=== PATIENT | female | born 1965 | race Caucasian/White ===

== ENCOUNTER 2019-07-26 10:44 | Inpatient (IN) | payer OTHER ==
--- NOTE | 2019-07-26 10:50 | PDOC ---
History of Present Illness - General Chief Complaint: Wound Stated Complaint: LEG ULCER Time Seen by Provider: 07/26/19 10:48 History Source: Patient Exam Limitations: No Limitations - History of Present Illness Initial Comments: 07/26/19 10:50 54yF w PMHx lupus, Raynaud's disease, DVT, vasculitis presenting w LLE pain, edema, ulcer. 3d ago, progressive worsening pain (worse w rest, relieved w movement), erythema, edema, warm, rapidly growing black/red ulcer over mid- medial LLE with minimal yellow clear discharge. Denies leg trauma. Took ibuprofen without much relief, last time 8a. Still able to ambulate. Not on anticoagulation or immunosupression. Was seen in 12/2012 for RLE ulcer, DVT, infection managed by vascular surgeon Dr. Arcos. Dr. Arcos was out of the country this week. Denies fever, nausea/vomiting, chest pain/SOB, urinary/ bowel mvmt changes. Past History - Past Medical History Allergies/Adverse Reactions: Allergies Allergy/AdvReac Type Severity Reaction Status Date / Time No Known Drug Allergies Allergy Verified 07/26/19 10:51 Home Medications: Ambulatory Orders Ibuprofen 600 mg PO TID PRN 07/26/19 Anemia: Yes Asthma: No Cancer: No Cardiac Disorders: No CVA: No COPD: No CHF: No Dementia: No Diabetes: No GI Disorders: No Disorders: No HTN: No Hypercholesterolemia: No Liver Disease: No Seizures: No Thyroid Disease: No - Surgical History Abdominal Surgery: No Appendectomy: Yes Cardiac Surgery: No Cholecystectomy: No Lung Surgery: No Neurologic Surgery: No Orthopedic Surgery: No - Psycho Social/Smoking Cessation Hx Smoking Status: No Smoking History: Current every day smoker Have you smoked in the past 12 months: Yes Number of Cigarettes Smoked Daily: 5 'Breaking Loose' booklet given: 02/21/13 Hx Alcohol Use: Yes (1-2 GLASSES WINE/DAY) Drug/Substance Use Hx: Yes Substance Use Type: Alcohol Hx Substance Use Treatment: No Review of Systems - Review of Systems Constitutional: No: Chills, Fever HEENTM: No: Eye Pain, Ear Discharge, Nose Bleeding, Throat Pain Respiratory: No: Cough, Shortness of Breath Cardiac (ROS): No: Chest Pain, Lightheadedness ABD/GI: No: Abdominal Distended, Constipated, Diarrhea, Nausea, Vomiting : No: Burning, Dysuria, Flank Pain Musculoskeletal: No: Back Pain, Gout Integumentary: Yes: Erythema (RLE). No: Bruising Neurological: No: Headache, Seizure, Tingling Psychiatric: No: Anxiety, Depression, Stressors Endocrine: No: Excessive Sweating, Flushing, Intolerance to Cold, Intolerance to Heat Hematologic/Lymphatic: Yes: Blood Clots. No: Anemia *Physical Exam - Physical Exam General Appearance: Yes: Nourished, Appropriately Dressed, Mild Distress HEENT: positive: EOMI, MAGGIE, Normal Voice, Hearing Grossly Normal. negative: Scleral Icterus (R), Scleral Icterus (L), Nasal Congestion, Rhinorrhea Respiratory/Chest: positive: Lungs Clear, Normal Breath Sounds. negative: Chest Tender, Respiratory Distress, Crackles, Rales, Rhonchi, Stridor, Wheezing Cardiovascular: positive: Regular Rhythm, Regular Rate, S1, S2. negative: Edema , Murmur Vascular Pulses: Dorsalis-Pedis (R): 2+, Doralis-Pedis (L): 2+ Integumentary: positive: Swelling (3+ edema to knee RLLE), Other (8cm irregular black/red superficial ulcer over medial-mid L tib-fib. 5cm ulcer below with clear yellow discharge. Surrounding warmth, erythema extending up posterior mid thigh down to foot. RLE healed punched out ulcers/scarring) Neurologic: positive: recruiting intern II-XII NML intact, Fully Oriented, Alert, Normal Response, Motor Strength 5/5. negative: Numbness, Sensory Deficit, Confused, Disoriented ED Treatment Course - LABORATORY CBC & Chemistry Diagram: 07/26/19 13:20 07/26/19 13:20 Medical Decision Making - Medical Decision Making 07/26/19 11:31 CBC CMP trop lactate blood/wound cx coags T&S EKG shows NSR, L axis deviation, HR 70 QTc 473, no ST changes CXR clear lung martinez Anselmo leg US PE : RLE 8cm irregular black/red superficial ulcer over medial-mid L tib-fib. Separate 5cm posterior ulcer with clear yellow discharge. Surrounding warmth, edema, erythema extending up posterior mid thigh AST 230, ALT 170, total bili 1.4 --- 54yF w PMHx lupus, Raynaud's disease, DVT, vasculitis presenting w LLE pain, edema, ulcer d/t Cellulitis 2/2 vascular insufficiency. LLE XR did not show fracture/subluxation/ostemyelitis/nercotizing fasciitis, US did not show DVT Elevated LFTs, total bili 1.4, neg weaver sign, denies AB pain. Neurovascular intact. Given tylenol, 2 morphine, vanc/sozyn for . CBC, CMP non concerning. Elevated LFTs, total bili 1.4, neg weaver sign, denies AB pain. No need for emergent vascular consult Admitted m/s Dr Dobson for LLE cellulitis and necrosis requiring IV antibiotics Discharge - Discharge Information Problems reviewed: Yes Clinical Impression/Diagnosis: Cellulitis Qualifiers: Site of cellulitis: extremity Site of cellulitis of extremity: lower extremity Laterality: left Qualified Code(s): L03.116 - Cellulitis of left lower limb Condition: Good - Follow up/Referral Referrals: Alfredo Munguia MD [Primary Care Provider] - - Patient Discharge Instructions - Post Discharge Activity
[2019-07-26 10:58] VITALS: BMI 26.4
[2019-07-26] MEDS ORDERED: ACETAMINOPHEN 1000 MG/100 ML VIAL (NON FORMULARY) IVPB ONE (11:19)
[2019-07-26] MEDS ORDERED: ACETAMINOPHEN INJECTION 100 ML IVPB ONE (11:25)
--- NOTE | 2019-07-26 11:33 | PDOC ---
Attending Attestation - Resident Resident Name: Hossein Ramirez - ED Attending Attestation I have performed the following: I have examined & evaluated the patient, The case was reviewed & discussed with the resident, I agree w/resident's findings & plan, Exceptions are as noted - HPI HPI: 07/26/19 11:30 54-year-old female history of ray nods, lupus, prior DVT and previous varicose veins and leg ulcers. Here today complaining of the left leg swelling redness and ulcer. Patient states her symptoms started approximately 4 days ago she noticed a small blister which subsequently grew and developed a ulcerated wound today she noted it was darkened in color and had some leg swelling and pain. States her pain is worse with sitting still but improved with getting up and ambulating is not currently on any anticoagulation does not take a baby aspirin. Also states she is not on any rheumatoid or immune modulators. She follows with Dr. Dain Hendrickson vascular surgeon who is out of town on vacation denies any fevers chills no shortness of breath no chest pain no history of renal or cardiac involvement secondary to her lupus - Physicial Exam PE: 07/26/19 11:31 Awake alert no acute distress lungs are clear bilaterally heart is regular with any murmurs rubs or gallops abdomen is soft nontender extremities are cool but well perfused patient does have 2+ DP PT pulses bilaterally. There is bilateral pitting edema noted the left leg is noted for a large 5 x 2 inch necrotic and reddened wound there is surrounding erythema no noted exudates or drainage. No purulence. Skin is otherwise noted for old wound scars but otherwise warm and dry and intact with no rash patient is awake alert and oriented x3 - Medical Decision Making 07/26/19 11:32 54-year-old female history of lupus ray nods prior DVT not on any anticoagulation here today with a left leg swelling wound and pain. Concerns for necrosis does have good pulses. At this time differential includes DVT vasculitic wound infection renal failure and cardiac involvement is also considered due to her history of lupus. Plan CBC CMP BNP troponin EKG chest x- ray and Dopplers of the left lower extremity. Due to the concern patient has vascular involvement and has had difficulty healing her wounds she will be admitted for IV antibiotics with a consult vascular surgery 07/26/19 13:49 pt dopplers negative. will treat with vanco and zosy. pt high risk leg ulcer due to h;o lupus, raynauds, chronic wounds and venous insufficency . large necrotic wound. will given iv abx, doppler negative for dvt. pt with good pulses. xray negative for osteo, cxr negative for CHF . 07/26/19 15:21 attempt to call pt vascular surgeon, [place], unavailable on vacation until 08/05. called pt pcp dr Munguia, pt may require transfer as she has required intervention by vascular surgeon in the past and skin graft to prior wounds on opposite leg. no vascular surgeons availble for consult here at [facility] or [facility]. d/w admitting [facility] OPERATOR Tejinder, will accept pt . will obtain ct leg with contrast r/o underlyung abscess or surgical issue. Heart Score/ECG Review #1 General ECG Interpretation: Sinus Rhythm, Normal Rate, Normal Intervals, No acute ischemic changes (TWI III, AVF,)
[2019-07-26 13:43] LABS: BASO % 0.2 % (0-2.0); EOS % 0.4 % (0-4.5); HEMOGLOBIN 12.4 GM/dl (10.7-15.3); LYMPH % 16.9 % (8-40); MCH 33.7 pg (25.7-33.7); MCHC 33.5 g/dl (32.0-36.0); MEAN CELL VOLUME 100.5 fl (80-96); MEAN PLT VOLUME 7.6 fl (7.5-11.1); MONO % 7.9 % (3.8-10.2); NEUT % 74.6 % (42.8-82.8); PLATELET COUNT 174 K/MM3 (134-434); RBC 3.69 M/mm3 (3.60-5.2); RDW 12.1 % (11.6-15.6); WHITE BLOOD COUNT 5.5 K/mm3 (4.0-10.8)
[2019-07-26 13:49] LABS: ALBUMIN 3.1 g/dl (3.4-5.0); BILIRUBIN,TOTAL 1.4 mg/dl (0.2-1); CALCIUM 8.7 mg/dl (8.5-10); CREATININE 0.5 mg/dl (0.55-1.3); POTASSIUM 3.6 mmol/L (3.5-5.1); TOT PROT 8.3 g/dl (6.4-8.2)
[2019-07-26] MEDS ORDERED: VANCOMYCIN 1 GM in D5W (PRE-DOCKED) 1,000 MG/250 ML IVPB ONE (13:50)
[2019-07-26] MEDS ORDERED: PIPERACILLIN/TAZOB 3.375 GM 3.375 GM in DEXTROSE 5%-WATER - 50 ML IVPB ONE (13:51)
[2019-07-26 13:57] LABS: INR 1.23 (0.82-1.09); PROTHROMBIN TIME (PATIENT) 13.7 SEC (10.2-13.0)
[2019-07-26] MEDS ORDERED: morphine CARPU-JECT 4 MG/1 ML DISP.SYRIN IVPUSH ONE (14:04)
[2019-07-26] MEDS ORDERED: morphine SULFATE 4 MG/ML VIAL ONE ×2 (14:05→17:06)
[2019-07-26] MEDS ORDERED: VANCOMYCIN 1,000 MG VIAL (RESTRICTED TO ID ONLY) ONE (14:06)
[2019-07-26] MEDS ORDERED: PIPERACILLIN/TAZOBACTAM 3.375 GM VIAL IVPB ONE ×2 (14:06→21:33)
[2019-07-26] MEDS ORDERED: morphine CARPU-JECT 2 MG/1 ML DISP.SYRIN IVPUSH ONE (17:04)
--- NOTE | 2019-07-26 19:42 | HP ---
Admitting History and Physical - Primary Care Physician PCP: Dr. Jansen - Admission Chief Complaint: left leg wound/pain History of Present Illness: 54 year old female with PMHx of lupus, Raynaud's disease, DVT, vasculitis arrived to ED with complain of LLE pain, edema, ulcer which started 3d ago and has been progressively worsening pain occus with rest, relieved with movement, erythema, edema, warm, rapidly growing black/red ulcer over mid-medial LLE with minimal yellow clear discharge. Denies leg trauma. Patient took ibuprofen without much relief (last dose 8am), still able to ambulate. Not on anticoagulation or immunosupression. Patient denies fever, nausea/vomiting, chest pain/SOB, urinary/bowel mvmt changes. History Source: Patient Limitations to Obtaining History: No Limitations - Past Medical History Cardiovascular: Yes: Deep Vein Thrombosis ...LMP: 07/31/08 Heme/Onc: Yes: Anemia Rheumatology: Yes: Lupus, Vasculitis, Other (Raynaud's disease) - Past Surgical History Past Surgical History: Yes: Appendectomy - Smoking History Smoking history: Current every day smoker Have you smoked in the past 12 months: Yes Aproximately how many cigarettes per day: 5 - Alcohol/Substance Use Hx Alcohol Use: Yes (1-2 GLASSES WINE/DAY) History of Substance Use: reports: None - Social History ADL: Independent History of Recent Travel: No Home Medications - Allergies Allergies/Adverse Reactions: Allergies Allergy/AdvReac Type Severity Reaction Status Date / Time No Known Drug Allergies Allergy Verified 07/26/19 10:51 - Home Medications Home Medications: Ambulatory Orders Ibuprofen 600 mg PO TID PRN 07/26/19 Family Medical History Family History: Denies Review of Systems - Review of Systems Constitutional: reports: No Symptoms Eyes: reports: No Symptoms HENT: reports: No Symptoms Neck: reports: No Symptoms Cardiovascular: reports: No Symptoms Respiratory: reports: No Symptoms Gastrointestinal: reports: No Symptoms Genitourinary: reports: No Symptoms Breasts: reports: No Symptoms Reported Musculoskeletal: reports: No Symptoms, Extremity Pain Integumentary: reports: Erythema, Wound, Other (LLE pain, edema, ulcer) Neurological: reports: No Symptoms Endocrine: reports: No Symptoms Hematology/Lymphatic: reports: No Symptoms Psychiatric: reports: No Symptoms Physical Examination Vital Signs: Vital Signs Temperature 98.2 F 07/26/19 18:16 Pulse Rate 82 07/26/19 18:16 Respiratory Rate 16 07/26/19 18:16 Blood Pressure 140/81 07/26/19 18:16 O2 Sat by Pulse Oximetry (%) 96 07/26/19 10:45 Constitutional: Yes: No Distress, Calm Eyes: Yes: Conjunctiva Clear, EOM Intact HENT: Yes: Atraumatic, Normocephalic Neck: Yes: Supple, Trachea Midline Cardiovascular: Yes: Regular Rate and Rhythm Respiratory: Yes: Regular, CTA Bilaterally Gastrointestinal: Yes: Normal Bowel Sounds, Soft Musculoskeletal: Yes: WNL Extremities: Yes: Erythema, Other (Swelling,(8cm irregular black/red superficial ulcer over medial-mid L tib-fib. 5cm ulcer below with clear yellow discharge. Surrounding warmth, erythema extending up posterior mid thigh down to foot. RLE healed punched out ulcers/scarring)) Edema: Yes Edema: LLE: 4+, RLE: 4+ Peripheral Pulses WNL: Yes Integumentary: Yes: Erythema, Venous Stasis Changes Neurological: Yes: Alert, Oriented Labs: CBC, BMP 07/26/19 13:20 07/26/19 13:20 Imaging - Results Chest X-ray: Report Reviewed (No acute infiltrate) X-ray: Report Reviewed (tibia/fib left - no acute fx noted) Cat Scan: Report Reviewed (CT LE: No CT evidence of abscess or soft air tissues) Ultrasound: Report Reviewed (Vascular studies b/l LE: No DVT) EKG: Report Reviewed (EKG shows NSR, L axis deviation, no ST changes) Problem List - Problems (1) Necrotizing cellulitis Code(s): L03.90 - CELLULITIS, UNSPECIFIED (2) Lupus (systemic lupus erythematosus) Code(s): M32.9 - SYSTEMIC LUPUS ERYTHEMATOSUS, UNSPECIFIED (3) Raynaud disease Code(s): I73.00 - RAYNAUD'S SYNDROME WITHOUT GANGRENE (4) H/O deep venous thrombosis Code(s): Z86.718 - PERSONAL HISTORY OF OTHER VENOUS THROMBOSIS AND EMBOLISM (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 # LLE cellulitis necrotizing CBC reviewed unremarkable afebrile, lactic wnl EKG shows NSR, L axis deviation, no ST changes CXR clear lung martinez Anselmo leg US: negative no DVT CT LE: no evidence of abscess or soft air tissue/gas accumulation In ED given tylenol, 2mg morphine, vanc/sozyn - will continue with zosyn q 8 hours - follow up cbc, wound/blood cx - pain management - Elevated extremity - follow up ID - follow up vascular #Hypertransaminasemia - AST 230, ALT 170, total bili 1.4 (elevated from prior visit) -- abd ? - follow LFTs and bili trend - follow up ABD US - if any acute finding consider CT abd Diet: regular diet VTE:Lovenox SQ Dispo: Inpatient medicine Visit type - Emergency Visit Emergency Visit: Yes ED Registration Date: 07/26/19 Care time: The patient presented to the Emergency Department on the above date and was hospitalized for further evaluation of their emergent condition. - New Patient This patient is new to me today: Yes Date on this admission: 07/27/19 - Critical Care Critical Care patient: No
[2019-07-26] MEDS ORDERED: oxyCODONE HCL 5 MG TABLET PO PRN (20:03)
[2019-07-26] MEDS ORDERED: DEXTROSE 5%-WATER - 50 ML IVPB ONE (21:33)
[2019-07-26] MEDS: traMADol HCL 50 MG TABLET PO PRN (21:39)
[2019-07-26] MEDS: ACETAMINOPHEN 325 MG TABLET (FP) PO PRN (21:39)
[2019-07-26] MEDS: PIPERACILLIN/TAZOB 3.375 GM 3.375 GM in DEXTROSE 5%-WATER - 50 ML IVPB SCH (21:40)
[2019-07-26] MEDS ORDERED: PIPERACILLIN/TAZOB 3.375 GM 3.375 GM in DEXTROSE 5%-WATER - 50 ML IVPB SCH (22:00)
[2019-07-26] MEDS ORDERED: HYDROmorphone HCL CARPU-JECT 1 MG/1 ML DISP.SYRIN IVPUSH ONE (23:02)
[2019-07-27] MEDS: VANCOMYCIN 1 GM in D5W (PRE-DOCKED) 1,000 MG/250 ML IVPB SCH ×2 (01:33→14:05)
[2019-07-27] MEDS ORDERED: VANCOMYCIN 1 GM in D5W (PRE-DOCKED) 1,000 MG/250 ML IVPB SCH ×3 (02:00→16:00)
[2019-07-27] MEDS ORDERED: DEXTROSE 5%-WATER - 50 ML IVPB ONE ×3 (03:31→13:19)
[2019-07-27] MEDS ORDERED: PIPERACILLIN/TAZOBACTAM 3.375 GM VIAL IVPB ONE ×3 (03:31→13:18)
[2019-07-27] MEDS: PIPERACILLIN/TAZOB 3.375 GM 3.375 GM in DEXTROSE 5%-WATER - 50 ML IVPB SCH ×2 (03:36→10:00)
[2019-07-27] MEDS: ACETAMINOPHEN 325 MG TABLET (FP) PO PRN (03:45)
[2019-07-27] MEDS: traMADol HCL 50 MG TABLET PO PRN ×2 (03:45→16:15)
[2019-07-27] MEDS ORDERED: HYDROmorphone HCL CARPU-JECT 1 MG/1 ML DISP.SYRIN IM PRN (06:31)
[2019-07-27 09:00] LABS: ALBUMIN 2.7 g/dl (3.4-5.0); BASO % 0.2 % (0-2.0); BILIRUBIN,TOTAL 1.1 mg/dl (0.2-1); CALCIUM 8.1 mg/dl (8.5-10); CREATININE 0.5 mg/dl (0.55-1.3); EOS % 1.1 % (0-4.5); HEMATOCRIT 35.1 % (32.4-45.2); HEMOGLOBIN 11.6 GM/dl (10.7-15.3); LYMPH % 21.3 % (8-40); MEAN PLT VOLUME 7.6 fl (7.5-11.1); NEUT % 66.4 % (42.8-82.8); PLATELET COUNT 174 K/MM3 (134-434); POTASSIUM 4.2 mmol/L (3.5-5.1); RBC 3.51 M/mm3 (3.60-5.2); RDW 12.1 % (11.6-15.6); TOT PROT 7.3 g/dl (6.4-8.2); WHITE BLOOD COUNT 5.8 K/mm3 (4.0-10.8)
[2019-07-27] MEDS ORDERED: ENOXAPARIN NA (PORCINE) 40 MG/0.4 ML DISP.SYRIN SQ SCH (10:00)
--- NOTE | 2019-07-27 10:14 | PN ---
Physical Exam: SUBJECTIVE: Patient seen and examined, c/o LLE pain, no other complains. OBJECTIVE: Vital Signs Period Temp Pulse Resp BP Sys/Franklin Pulse Ox Last 24 Hr 98.2 F-99.7 F 73-89 16-18 108-152/55-82 94-96 GENERAL: The patient is awake, alert, and fully oriented, in no acute distress. HEAD: Normal with no signs of trauma. EYES: PERRL, extraocular movements intact, sclera anicteric, conjunctiva clear. No ptosis. ENT: Ears normal, nares patent, oropharynx clear without exudates, moist mucous membranes. NECK: Trachea midline, full range of motion, supple. LUNGS: Breath sounds equal, clear to auscultation bilaterally, no wheezes, no crackles, no accessory muscle use. HEART: Regular rate and rhythm, S1, S2 without murmur, rub or gallop. ABDOMEN: Soft, nontender, nondistended, normoactive bowel sounds, no guarding, no rebound, no hepatosplenomegaly, no masses. EXTREMITIES: 2+ pulses, warm, well-perfused, LLE with with redness/ tenderness irregular black/red superficial ulcer over medial-mid L tib-fib, + edema 2-3+, pulse present NEUROLOGICAL: Cranial nerves II through XII grossly intact. Normal speech, gait not observed. PSYCH: Normal mood, normal affect. SKIN: Warm, dry, normal turgor, no rashes or lesions noted Laboratory Results - last 24 hr 07/26/19 07/26/19 07/26/19 13:20 13:20 13:20 WBC 5.5 RBC 3.69 Hgb 12.4 Hct 37.0 MCV 100.5 H MCH 33.7 MCHC 33.5 RDW 12.1 D Plt Count 174 MPV 7.6 Absolute Neuts (auto) 4.2 Neutrophils % 74.6 Lymphocytes % 16.9 Monocytes % 7.9 Eosinophils % 0.4 Basophils % 0.2 PT with INR INR Sodium 133 L Potassium 3.6 Chloride 97 L Carbon Dioxide 26 Anion Gap 10 BUN 6.0 L Creatinine 0.5 L Est GFR (CKD-EPI)AfAm 125.40 Est GFR (CKD-EPI)NonAf 108.19 Random Glucose 109 H Lactic Acid Calcium 8.7 Total Bilirubin 1.4 H AST 236 H ALT 175 H Alkaline Phosphatase 57 Troponin I < 0.03 Total Protein 8.3 H Albumin 3.1 L Urine Color Urine Appearance Urine pH Urine Protein Urine Glucose (UA) Urine Ketones Urine Blood Urine Nitrite Urine Bilirubin Urine Urobilinogen Ur Leukocyte Esterase Blood Type Antibody Screen 07/26/19 07/26/19 07/26/19 13:20 13:20 13:20 WBC RBC Hgb Hct MCV MCH MCHC RDW Plt Count MPV Absolute Neuts (auto) Neutrophils % Lymphocytes % Monocytes % Eosinophils % Basophils % PT with INR 13.7 H INR 1.23 H Sodium Potassium Chloride Carbon Dioxide Anion Gap BUN Creatinine Est GFR (CKD-EPI)AfAm Est GFR (CKD-EPI)NonAf Random Glucose Lactic Acid 1.3 Calcium Total Bilirubin AST ALT Alkaline Phosphatase Troponin I Total Protein Albumin Urine Color Urine Appearance Urine pH Urine Protein Urine Glucose (UA) Urine Ketones Urine Blood Urine Nitrite Urine Bilirubin Urine Urobilinogen Ur Leukocyte Esterase Blood Type A POSITIVE Antibody Screen Negative 07/26/19 07/27/19 07/27/19 14:25 07:32 07:32 WBC 5.8 RBC 3.51 L Hgb 11.6 Hct 35.1 MCV 100.0 H MCH 33.0 MCHC 33.0 RDW 12.1 Plt Count 174 MPV 7.6 Absolute Neuts (auto) 3.9 Neutrophils % 66.4 Lymphocytes % 21.3 Monocytes % 11.0 H Eosinophils % 1.1 Basophils % 0.2 PT with INR INR Sodium 134 L Potassium 4.2 Chloride 99 Carbon Dioxide 28 Anion Gap 7 L BUN 4.0 L Creatinine 0.5 L Est GFR (CKD-EPI)AfAm 125.40 Est GFR (CKD-EPI)NonAf 108.19 Random Glucose 85 Lactic Acid Calcium 8.1 L Total Bilirubin 1.1 H AST 163 H ALT 133 H Alkaline Phosphatase 46 D Troponin I Total Protein 7.3 Albumin 2.7 L Urine Color Mary Urine Appearance Clear Urine pH 6.5 Urine Protein Trace Urine Glucose (UA) Negative Urine Ketones 1+ H Urine Blood Negative Urine Nitrite Negative Urine Bilirubin 1+ H Urine Urobilinogen 1.0 Ur Leukocyte Esterase Negative Blood Type Antibody Screen Active Medications Generic Name Dose Route Start Last Admin Trade Name Freq PRN Reason Stop Dose Admin Acetaminophen 650 mg 07/26/19 20:01 07/27/19 03:45 Tylenol - PO 650 mg Q6H PRN Administration PAIN LEVEL 1-5 Enoxaparin Sodium 40 mg 07/27/19 10:00 Lovenox - SQ DAILY REUBEN Hydromorphone HCl 0.5 mg 07/27/19 06:31 07/27/19 06:53 Dilaudid Injection - IM 0.5 mg Q6H PRN Administration PAIN LEVEL 7 - 10 Piperacillin Sod/Tazobactam 50 mls @ 100 mls/hr 07/26/19 22:00 07/27/19 03:36 Sod 3.375 gm/ Dextrose IVPB 07/27/19 10:29 100 mls/hr Q8H-IV REUBEN Administration Protocol Vancomycin HCl 1,000 mg 07/27/19 02:00 07/27/19 01:33 Vancomycin (Pre-Docked) IVPB 07/27/19 14:01 1,000 mg Q12H REUBEN Administration Protocol EKG shows NSR, L axis deviation, no ST changes CXR clear lung martinez Anselmo leg US: negative no DVT CT LE: no evidence of abscess or soft air tissue/gas accumulation ASSESSMENT/PLAN: 54 year old female with PMHx of lupus, Raynaud's disease, DVT, vasculitis arrived to ED with complain of LLE pain, edema, ulcer. PMD Dr. Munguia vascular Dr. Arcos # LLE cellulitis,?narcotizing - afebrile with no leukocytosis - DVT ruled out - s/p Vanco and Zosyn in ER -will cont on Vanco, Zosyn - pain control - will f/u on culture reports - ID consult, Dr. Jack will see pt today - check vanco trough before the 4th dose - Elevated extremity - spoke with vascular Dr. Nye( image sent ), states likely an escher, rec to cont on IV abx and wound care referral ( Pt wants to see Dr. Arcos)) # Trasaminitis - LFT's remains elevated - Will check abdominal US - Hep profile # Hx lupus, Raynaud's disease - stable - not on any meds Diet: Regular diet VTE:Lovenox SQ Visit type - Emergency Visit Emergency Visit: Yes ED Registration Date: 07/26/19 Care time: The patient presented to the Emergency Department on the above date and was hospitalized for further evaluation of their emergent condition. - New Patient This patient is new to me today: Yes Date on this admission: 07/27/19 - Critical Care Critical Care patient: No
[2019-07-27] MEDS ORDERED: traMADol HCL 50 MG TABLET PO PRN (11:25)
[2019-07-27] MEDS ORDERED: HYDROmorphone HCL CARPU-JECT 1 MG/1 ML DISP.SYRIN IVPUSH PRN (11:25)
--- NOTE | 2019-07-27 13:36 | EKG ---
Test Reason : Blood Pressure : / mmHG Vent. Rate : 070 BPM Atrial Rate : 070 BPM P-R Int : 134 ms QRS Dur : 080 ms QT Int : 438 ms P-R-T Axes : 010 -42 -08 degrees QTc Int : 473 ms NORMAL SINUS RHYTHM LEFT AXIS DEVIATION ABNORMAL ECG NO PREVIOUS ECGS AVAILABLE Confirmed by MD NADEEM, DURAN ([id number]) on 07/27/2019 1:36:29 PM Referred By: Confirmed By:DURAN SILVER MD
[2019-07-27] MEDS ORDERED: PIPERACILLIN/TAZOB 3.375 GM 3.375 GM in DEXTROSE 5%-WATER - 50 ML IVPB SCH (15:30)
[2019-07-27] MEDS ORDERED: CLINDAMYCIN 900 MG PREMIX IVPB 900 MG/50 ML BAG IVPB SCH (16:00)
[2019-07-27] MEDS ORDERED: PIPERACILLIN/TAZOB 4.5 GM 4.5 GM in DEXTROSE 5%-WATER 100 ML IVPB SCH (16:00)
--- NOTE | 2019-07-27 16:02 | PN ---
Progress Note (short form) - Note Progress Note: ID consult dictated imp/reccd 54 yo female admitted from home- pmh of lupus- no meds has had itch of her LLE for last 2 weeks, on lc noted pain and swelling, it markedly worsened with black eschar and she came to ED on Monday notes similar episode in 2012 requiring vascular surgery input ct scan no abscess or air now febrile to 101.7 notes severe pain in her leg and area of eschar-increased since admission, new onset of fever despite 24 hours of antibiotics no nausea or vomiting no chest pain or abdominal pain severe soft tissue infection of the LLE- would suggest transfer to a facility that has surgery available to evaluate her leg vanco/zosyn/clindamycin ivf abnl lfts- clinically no signs of cholycytitis but US is suggestive, secondary to sepsis? NPO IVF zosyn d/w patient and d/w Dr Brantley plans for transfer over 45 minutes spent in the care of this patient Problem List - Problems (1) Necrotizing soft tissue infection Code(s): M79.89 - OTHER SPECIFIED SOFT TISSUE DISORDERS (2) Abnormal LFTs Code(s): R94.5 - ABNORMAL RESULTS OF LIVER FUNCTION STUDIES (3) Lupus (systemic lupus erythematosus) Code(s): M32.9 - SYSTEMIC LUPUS ERYTHEMATOSUS, UNSPECIFIED (4) Raynaud disease Code(s): I73.00 - RAYNAUD'S SYNDROME WITHOUT GANGRENE
[2019-07-27] MEDS ORDERED: DEXTROSE 5%-NORMAL SALINE 1,000 ML IV SCH (16:15)
[2019-07-27] MEDS ORDERED: DEXTROSE 5%-WATER 100 ML IVPB ONE (16:19)
[2019-07-27] MEDS ORDERED: PIPERACILLIN/TAZOBACTAM 4.5 GM VIAL IVPB ONE (16:19)
--- NOTE | 2019-07-27 17:03 | CONS ---
DATE OF CONSULTATION: 07/27/2019 REFERRING PROVIDER: The hospitalist service. This is a 54-year-old woman. She has a history of lupus (she is not on any medications), Raynaud's disease, prior DVT. She is followed by Dr. Munguia as an outpatient, has a remote history in 2012 of an ulcer of her right lower extremity that required debridement by Dr. Dain Martin. She has had 2 weeks of itching of her left lower extremity. She may have scratched it. On Monday the leg started becoming very painful and red. On showed noted rapidly growing eschar on the leg with severe pain, and she presented to the ER. She denies any trauma. She tried some Motrin. She denies any chest pain, abdominal pain, nausea, vomiting , or diarrhea. She denies any fever. On arrival in the ER, she has blood cultures drawn. She had labs checked which showed elevated liver enzymes. She had x-rays that showed no fracture. She had a duplex that showed no DVT. She had a CAT scan of her leg done that showed no abscess or soft tissue air. She was started on vancomycin and Zosyn. I am asked to see her for further evaluation. This afternoon she had fever of 101.7. She notes the leg is increasing in pain . It has been marked. There is a large area of eschar on the lower leg. She has surrounding area of erythema extending up into her thigh, all of which is very tender to touch. PAST MEDICAL HISTORY: Notable for DVT, anemia, lupus, vasculitis, and Raynaud's disease. She is status post appendectomy in the past. SOCIAL HISTORY: She lives with her , her sons. They have a pet dog. She is currently a smoker, smokes 5 cigarettes a day. She drinks 1 or 2 glasses of wine, and there is no history of any recent travel. ALLERGIES: She has no known drug allergies. MEDICATIONS: She has been taking Tylenol for the leg pain. FAMILY HISTORY: Unremarkable. REVIEW OF SYSTEMS: As reported, she has no headache. She has no nausea, vomiting, diarrhea, dysuria. She complains of severe pain in her leg. PHYSICAL EXAMINATION: General: She is awake and alert. Vital Signs: Her temperature is 101.7, pulse of 81, blood pressure 122/62, respiratory rate 16. She is saturating 94% on room air. HEENT: She is normocephalic. Her eyes are anicteric. Neck: Supple. Lungs: Clear to auscultation. Heart: Regular rate and rhythm. Abdomen: Soft, nontender. Extremities: She has no inguinal adenopathy. Her left leg, she has a large area, roughly 6 x 8 cm of a black eschar over the medial tib-fib of the left leg. Apparently she had some yellow drainage from this site that has stopped. She has surrounding warmth and erythema extending up the posterior midthigh down to her foot. The right lower extremity has some scarring, but no evidence of any erythema, warmth, or drainage. Neurologic: Nonfocal. LABORATORY: Her labs are notable for white count of 5.8, hemoglobin 11.6, platelets of 174. INR is 1.2. BUN and creatinine are 4 and 0.5. LFTs are notable for a total bilirubin of 1.1, AST of 163, ALT of 133, and an alkaline phosphatase of 46. Her urinalysis is 1+ bilirubin, and blood cultures are pending. Gram stain (I do not know what drainage there was of the leg) is pending. Preliminary wound culture is growing coagulase-positive staphylococcus. She has had a ultrasound of her abdomen that shows a fatty liver, gallbladder wall thickening with a small amount of fluid surrounding the gallbladder suggestive of possible early cholecystitis. SUMMARY: 1. This is a 54-year-old woman admitted with a severe soft tissue infection of the left lower extremity. New feveer despite 24 hours of antiibotics. worsening leg pain. I would suggest transfer to a facility that has surgery available to evaluate her leg and follow along. Would continue vancomycin, Zosyn, and clindamycin. Would continue IV fluids. 2. Abnormal liver function tests. Clinically no signs of cholecystitis, but ultrasound is suggestive. This could all be on the basis of sepsis as well. For now will make her n.p.o. and continue IV fluids and Zosyn. Case was discussed with patient and her as well as with Dr. Park. The plan will be to transfer the patient, and the family is agreeable to this. This will be facilitated by the hospitalist. Case was discussed at length with Dr. Park. TANYA CHAN M.D. [id number] MTDD
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
[2019-07-27 18:21] VITALS: BP 121/56; PULSE 86; TEMP 100.1
[2019-07-28] MEDS ORDERED: VANCOMYCIN 1 GM in D5W (PRE-DOCKED) 1,000 MG/250 ML IVPB SCH (02:00)
[2019-07-31 08:09] LABS: FIBROSIS SCORE. 0.77 (0.00-0.21); HCV ALPHA 2 MACRO CHART 288 mg/dL (110-276); NECRO.INFLAM ACT.SCORE 0.87 (0.00-0.17); NECROINFLAM. ACTIVITY GRADE A3-Severe activity (.)
[2019-08-10 22:45] LABS: HEP B CORE AB, TOT NEGATIVE
== END 2019-07-27 19:47 | disposition short-term general hospital (02) | DRG 603 ==
LOC: FER 10:44 → FM/S 14:25
PROVIDERS: ADMIT Hospitalist; ATTEND Nurse Practitioner Family
DX: L03.116 Cellulitis of left lower limb (principal); R74.0 Nonspecific elevation of levels of transaminase and lactic acid dehydrogenase [LDH]; M32.9 Systemic lupus erythematosus, unspecified; R94.5 Abnormal results of liver function studies; I73.00 Raynaud's syndrome without gangrene; F17.210 Nicotine dependence, cigarettes, uncomplicated
CPT/HCPCS: 36415; 71046-TC-FY; 73590-TC-LT-FY; 73701-TC-RT; 76705-TC; 80053; 80074; 81003; 82172; 82977; 83010; 83605; 83883; 84460; 84484; 85025; 85610; 86704; 86705; 86706; 86707; 86708; 86850; 86900; 86901; 87040; 87070; 87186; 87205; 87350; 93005; 93970-TC; 99285-25; J0131; Q9967

== ENCOUNTER 2021-12-06 20:12 | Emergency (ER) | payer OTHER ==
[2021-12-06 20:35] VITALS: BP 132/72; PULSE 90; BMI 29.2
[2021-12-06] MEDS ORDERED: LIDOCAINE 1%/EPI 1:100000 (20 ML MULTI DOSE VIAL) INF ONE (22:02)
[2021-12-06] MEDS ORDERED: LIDOCAINE HCL/EPINEPHRINE/PF 20 ML VIAL ONE (22:05)
== END 2021-12-06 22:45 | disposition home or self-care (01) ==
LOC: FER 20:12
PROC: 0HQKXZZ Repair Right Lower Leg Skin, External Approach (ICD-10-PCS; principal; 2021-12-06)
DX: I83.018 Varicose veins of right lower extremity with ulcer other part of lower leg (principal)
CPT/HCPCS: 99282-25

== ENCOUNTER 2022-04-13 10:33 | Day surgery (SDC) | payer OTHER ==
[2022-04-11 17:42] VITALS: BMI 29.2
[2022-04-13] MEDS ORDERED: BACITRACIN 15 GM TUBE TOPICAL OINTMENT ONE (11:47)
[2022-04-13] MEDS ORDERED: LIDOCAINE HCL 1%, 10 MG/ML (20ML VIAL) ONE (11:47)
[2022-04-13] MEDS ORDERED: FENTANYL CITRATE/PF 50 MCG/ML VIAL ONE ×3 (11:56→13:43)
[2022-04-13] MEDS ORDERED: MIDAZOLAM HCL 2 MG/2 ML SINGLE DOSE VIAL ONE (11:56)
[2022-04-13] MEDS ORDERED: PROPOFOL 60 ML ONE (12:31)
[2022-04-13] MEDS ORDERED: ONDANSETRON 4 MG/2 ML VIAL ONE (12:31)
[2022-04-13] MEDS ORDERED: ceFAZolin SODIUM 1 GM VIAL ONE (12:31)
[2022-04-13] MEDS ORDERED: DEXAMETHASONE SOD PHOSPHATE 4 MG/1 ML VIAL ONE (12:31)
[2022-04-13] MEDS ORDERED: oxyCODONE HCL 5 MG TABLET PO PRN (13:23)
[2022-04-13] MEDS ORDERED: ONDANSETRON 4 MG/2 ML VIAL IVPUSH PRN (13:23)
[2022-04-13] MEDS ORDERED: LACTATED RINGERS SOLUTION 1,000 ML IV SCH (13:30)
[2022-04-13] MEDS ORDERED: ACETAMINOPHEN 1000 MG/100 ML BAG IVPB ONE ×2 (14:45→15:20)
[2022-04-13] MEDS ORDERED: ACETAMINOPHEN INJECTION 100 ML IVPB ONE (14:48)
[2022-04-13 15:11] VITALS: RESP 18
[2022-04-13 15:21] VITALS: BP 128/70; PULSE 69; TEMP 97.4
== END 2022-04-13 15:22 | disposition home or self-care (01) ==
LOC: FASU 10:33
PROVIDERS: ATTEND Surgery Vascular Surgery
PROC: 0HRLX74 Replacement of Left Lower Leg Skin with Autologous Tissue Substitute, Partial Thickness, External Approach (ICD-10-PCS; principal; 2022-04-13 12:46)
DX: I87.312 Chronic venous hypertension (idiopathic) with ulcer of left lower extremity (principal); L97.928 Non-pressure chronic ulcer of unspecified part of left lower leg with other specified severity
CPT/HCPCS: 94760

== ENCOUNTER 2022-07-15 04:17 | Day surgery (SDC) | payer OTHER ==
[2022-07-14 10:52] VITALS: BMI 29.2
[2022-07-15] MEDS ORDERED: BACITRACIN 15 GM TUBE TOPICAL OINTMENT ONE (11:04)
[2022-07-15] MEDS ORDERED: LIDOCAINE HCL/PF 2% SDV 5ML VIAL ONE (11:49)
[2022-07-15] MEDS ORDERED: ONDANSETRON 4 MG/2 ML VIAL ONE (11:49)
[2022-07-15] MEDS ORDERED: PROPOFOL 20 ML ONE (11:49)
[2022-07-15] MEDS ORDERED: SODIUM CHLORIDE 0.9% P/F 10 ML VIAL IJ ONE (11:49)
[2022-07-15] MEDS ORDERED: ceFAZolin SODIUM 1 GM VIAL ONE (11:49)
[2022-07-15] MEDS ORDERED: FENTANYL CITRATE/PF 50 MCG/ML VIAL ONE (11:49)
[2022-07-15] MEDS ORDERED: SUCCINYLCHOLINE CHLORIDE 200 MG/10 ML SYRINGE ONE (11:50)
[2022-07-15] MEDS ORDERED: MIDAZOLAM HCL 2 MG/2 ML SINGLE DOSE VIAL ONE (11:50)
[2022-07-15] MEDS ORDERED: LIDOCAINE HCL 1%, 10 MG/ML (20ML VIAL) ONE (12:10)
[2022-07-15] MEDS ORDERED: BUPIVACAINE HCL/PF 0.5% (5MG/ML) 10 ML VIAL ONE (12:11)
[2022-07-15 13:38] VITALS: BP 140/77; PULSE 73; RESP 20; TEMP 98.2
== END 2022-07-15 13:52 | disposition home or self-care (01) ==
LOC: JASU-SURG 04:17
PROVIDERS: ATTEND Surgery Vascular Surgery
PROC: 0HRLXK4 Replacement of Left Lower Leg Skin with Nonautologous Tissue Substitute, Partial Thickness, External Approach (ICD-10-PCS; principal; 2022-07-15 12:00)
DX: S81.802A Unspecified open wound, left lower leg, initial encounter (principal); M32.9 Systemic lupus erythematosus, unspecified; I87.2 Venous insufficiency (chronic) (peripheral); X58.XXXA Exposure to other specified factors, initial encounter; Y93.9 Activity, unspecified; Y92.9 Unspecified place or not applicable
CPT/HCPCS: Q4121

== ENCOUNTER 2024-02-15 09:36 | Day surgery (SDC) | payer OTHER ==
[2024-02-14 14:26] VITALS: BMI 30.2
[2024-02-15 10:07] VITALS: BP 145/75; PULSE 81; RESP 19; TEMP 97.8
[2024-02-15] MEDS ORDERED: BACITRACIN ZINC 15 GM TUBE TOPICAL OINTMENT ONE (10:58)
== END 2024-02-15 11:25 | disposition home or self-care (01) ==
LOC: FASU 09:36
PROVIDERS: ATTEND Surgery Vascular Surgery
PROC: 0HRLX74 Replacement of Left Lower Leg Skin with Autologous Tissue Substitute, Partial Thickness, External Approach (ICD-10-PCS; principal; 2024-02-15)
DX: Z53.8 Procedure and treatment not carried out for other reasons (principal); I87.312 Chronic venous hypertension (idiopathic) with ulcer of left lower extremity; M32.9 Systemic lupus erythematosus, unspecified

== ENCOUNTER 2024-02-20 11:12 | Day surgery (SDC) | payer OTHER ==
[2024-02-16 13:20] VITALS: BMI 30.2
[2024-02-20] MEDS ORDERED: LIDOCAINE 1%/EPI 1:100000 (20 ML MULTI DOSE VIAL) ONE (12:07)
[2024-02-20] MEDS ORDERED: LIDOCAINE HCL 1%, 10 MG/ML (20ML VIAL) ONE (12:07)
[2024-02-20] MEDS ORDERED: BACITRACIN ZINC 15 GM TUBE TOPICAL OINTMENT ONE (12:07)
[2024-02-20] MEDS ORDERED: oxyCODONE HCL 5 MG TABLET PO PRN (12:14)
[2024-02-20] MEDS ORDERED: ONDANSETRON 4 MG/2 ML VIAL IVPUSH PRN (12:14)
[2024-02-20] MEDS ORDERED: LACTATED RINGERS SOLUTION 1,000 ML IV SCH (12:15)
[2024-02-20] MEDS ORDERED: DEXAMETHASONE SOD PHOSPHATE 4 MG/1 ML VIAL ONE (12:39)
[2024-02-20] MEDS ORDERED: PROPOFOL 40 ML ONE (12:39)
[2024-02-20] MEDS ORDERED: MINERAL OIL/PETROLATUM,WHITE 3.5 GM TUBE ONE (12:40)
[2024-02-20] MEDS ORDERED: MIDAZOLAM HCL 2 MG/2 ML SINGLE DOSE VIAL ONE (12:42)
[2024-02-20] MEDS ORDERED: ACETAMINOPHEN INJECTION 100 ML IVPB ONE (12:44)
[2024-02-20] MEDS ORDERED: ceFAZolin SODIUM 1 GM VIAL ONE (12:47)
[2024-02-20] MEDS ORDERED: BENZOIN/ALOE VERA/STORAX/TOLU 58 ML BOTTLE ONE (13:16)
[2024-02-20 15:21] VITALS: PULSE 89; RESP 16
[2024-02-20 15:41] VITALS: BP 104/52; TEMP 96.9
== END 2024-02-20 15:45 | disposition home or self-care (01) ==
LOC: FASU 11:12
PROVIDERS: ATTEND Surgery Vascular Surgery
PROC: 0HRLX74 Replacement of Left Lower Leg Skin with Autologous Tissue Substitute, Partial Thickness, External Approach (ICD-10-PCS; principal; 2024-02-20 13:04)
DX: I87.312 Chronic venous hypertension (idiopathic) with ulcer of left lower extremity (principal); L97.229 Non-pressure chronic ulcer of left calf with unspecified severity
CPT/HCPCS: 94760; J0131